=== PATIENT | male | born 1995 | race Two or more races ===

== ENCOUNTER 2017-05-13 02:21 | Emergency (ER) | payer OTHER ==
[~2017-05-13] VITALS: Ht 190.5 cm; Wt 102.1 kg
[2017-05-13 02:45] VITALS: BP 158/104
[2017-05-13 03:13] VITALS: BP 158/104
--- NOTE | 2017-05-13 08:08 | Emergency Room Report ---
History of Present Illness General Chief Complaint: General Complaint Source: Patient Present Illness HPI 21-year-old male presents ED complaining of palpitations. Started last night while at rest. States his heart was racing. Patient notes history of arrhythmia and takes atenolol. States is compliant with the medication. Denies chest pain or shortness of breath. Denies alcohol or drug use. States he does have history of anxiety which causes his heart race. No other aggravating or leading factors. Denies any other associated symptom Allergies: Coded Allergies: No Known Allergies (Unverified , 05/13/17) Patient History Past Medical History: none Past Surgical History: none Pertinent Family History: none Social History: Denies: smoking, alcohol use, drug use Immunizations: UTD Reviewed Nursing Documentation: PMH: Agreed, PSxH: Agreed Nursing Documentation-PMH Past Medical History: No History, Except For Review of Systems All Other Systems: negative except mentioned in HPI Physical Exam Vital Signs Date Time Temp Pulse Resp B/P (MAP) Pulse Ox O2 Delivery O2 Flow Rate FiO2 05/13/17 02:36 98.1 85 16 158/104 98 Room Air Sp02 EP Interpretation: reviewed, normal General Appearance: no apparent distress, alert, GCS 15, non-toxic Head: normocephalic, atraumatic Eyes: bilateral eye normal inspection, bilateral eye PERRL ENT: hearing grossly normal, normal pharynx, no angioedema, normal voice Neck: full range of motion, supple/symm/no masses Respiratory: chest non-tender, lungs clear, normal breath sounds, speaking full sentences Cardiovascular #1: regular rate, rhythm, no edema Cardiovascular #2: 2+ carotid (R), 2+ carotid (L), 2+ radial (R), 2+ radial (L) , 2+ dorsalis pedis (R), 2+ dorsalis pedis (L) Gastrointestinal: normal bowel sounds, non tender, soft, non-distended, no guarding, no rebound Rectal: deferred Genitourinary: normal inspection, no CVA tenderness Musculoskeletal: back normal, gait/station normal, normal range of motion, non- tender Neurologic: alert, oriented x3, responsive, motor strength/tone normal, sensory intact, speech normal Psychiatric: judgement/insight normal, memory normal, mood/affect normal, no suicidal/homicidal ideation Reflexes: 3+ bicep (R), 3+ bicep (L), 3+ tricep (R), 3+ tricep (L), 3+ knee (R) , 3+ knee (L) Skin: normal color, no rash, warm/dry, well hydrated Lymphatic: no adenopathy Medical Decision Making Diagnostic Impression: Primary Impression: Palpitations ER Course Hospital Course 21-year-old M presents ED complaining of palpitations Differential diagnoses include: afib, Vtach, SVT, anxiety, dehydration Clinical course Patient placed on stretcher. After initial history and physical I ordered EKG EKG - NSR, no acute ischemic changes interpreted by me I discussed findings with the patient. Reassurance given. I see no reason for further workup including IV or lab draw. patient states he was just started on atenolol a few weeks ago. Recommended patient followup with his PMD for possible adjustment of medication dosage I. I feel this is a highly complex case requiring extensive working including EKG/Rhythm strip, Xray/CT/US, Blood/urine lab work, repeat exams while in ED, and administration of strong opiates/narcotics for pain control, admission to hospital or close patient follow up. Diagnosis - palpitations Stable and discharged to home. Instructed to followup with PMD. Return to ED if symptoms recur or worsen EKG Diagnostic Results Rate: normal Rhythm: NSR ST Segments: no acute changes ASA given to the pt in ED: No Rhythm Strip Diag. Results EP Interpretation: yes Rhythm: NSR, no PVC's, no ectopy Last Vital Signs Date Time Temp Pulse Resp B/P (MAP) Pulse Ox O2 Delivery O2 Flow Rate FiO2 05/13/17 03:13 85 16 158/104 98 05/13/17 02:45 98.1 Room Air Status: improved Disposition: HOME, SELF-CARE Condition: Stable Referrals: [facility],REFERRING (PCP) Patient Instructions: Palpitations, [id number] HERMAN COOK M.D. May 13, 2017 08:08
== END 2017-05-13 03:32 | disposition home or self-care (01) ==
LOC: EMR 02:53
DX: R00.2 Palpitations (principal)
CPT/HCPCS: 99283